=== PATIENT | female | born 1970 ===

== ENCOUNTER 2020-05-08 18:13 | Inpatient (IN) ==
[2020-05-08] MEDS ORDERED: *HR* LORazepam 2 MG/ML VIAL IM PRN (18:32)
[2020-05-08] MEDS ORDERED: traZODone 50 MG TABLET PO PRN (18:32)
[2020-05-08] MEDS ORDERED: haloperidoL 5 MG TABLET PO PRN (18:32)
[2020-05-08] MEDS ORDERED: Haloperidol Lactate 5 MG/ML VIAL IM PRN (18:32)
[2020-05-08] MEDS ORDERED: Mag Hydrox/Al Hydrox/Simeth 30 ML UDC PO PRN (18:32)
[2020-05-08] MEDS ORDERED: *HR* LORazepam 1 MG TABLET PO PRN (18:32)
[2020-05-08] MEDS ORDERED: MOM Conc 10 ML UD.LIQ PO PRN (18:32)
[2020-05-08] MEDS ORDERED: hydrOXYzine pamoate 25 MG CAPSULE PO PRN (18:32)
[2020-05-08] MEDS ORDERED: Nicotine 2 MG GUM BC PRN (20:27)
[2020-05-09] MEDS ORDERED: atenoloL 25 MG TABLET PO SCH (10:15)
[2020-05-09] MEDS: clonazePAM 1 MG TABLET PO SCH ×2 (10:52→20:59)
[2020-05-09] MEDS: ARIPiprazole 5 MG TABLET PO SCH (10:53)
[2020-05-09] MEDS: Loratadine 10 MG TABLET PO SCH (10:53)
[2020-05-09] MEDS: Venlafaxine XR (24 HR) 150 MG CAP.ER.24H PO SCH (10:53)
[2020-05-09] MEDS: amLODIPine 5 MG TABLET PO SCH (10:54)
[2020-05-09] MEDS: atenoloL 25 MG TABLET PO SCH ×2 (10:54→20:59)
[2020-05-09] MEDS: Ibuprofen 400 MG TABLET PO PRN ×2 (11:00→20:59)
[2020-05-09] MEDS: NORGESTIMATE ETHINYL ESTRADIOL PO SCH (12:21)
[2020-05-10] MEDS: amLODIPine 5 MG TABLET PO SCH (08:54)
[2020-05-10] MEDS: Loratadine 10 MG TABLET PO SCH (08:54)
[2020-05-10] MEDS: Venlafaxine XR (24 HR) 150 MG CAP.ER.24H PO SCH (08:55)
[2020-05-10] MEDS: ARIPiprazole 5 MG TABLET PO SCH (08:55)
[2020-05-10] MEDS: clonazePAM 1 MG TABLET PO SCH (08:55)
[2020-05-10] MEDS: atenoloL 25 MG TABLET PO SCH (08:56)
[2020-05-10] MEDS: NORGESTIMATE ETHINYL ESTRADIOL PO SCH (08:58)
[2020-05-10 10:46] VITALS: BP 138/87
== END 2020-05-10 16:55 | disposition home or self-care (01) | DRG 885 ==
LOC: INTOOBSV 18:13 → 1ANU 18:13
PROVIDERS: ADMIT Psychiatry & Neurology Psychiatry; ATTEND Psychiatry & Neurology Psychiatry